=== PATIENT | female | born 1985 | race Caucasian/White ===

== ENCOUNTER 2024-01-03 12:39 | Inpatient (IN) ==
[2024-01-03] MEDS ORDERED: Lidocaine 1% VIAL 10 MG/ML 30 ML VIAL INJ PRN (12:58)
[2024-01-03] MEDS: Lactated Ringers 1000 ml BAG 1,000 ML IV ONE ×2 (13:00→21:19)
[2024-01-03] MEDS: Lactated Ringers 1000 ml BAG 1,000 ML IV SCH ×2 (13:23→21:19)
[2024-01-03 13:33] LABS: ABS Basophils 0.1 10^3/uL (0.0-0.1); ABS Lymphocytes 1.3 10^3/uL (1.0-4.8); ABS Monocytes 0.7 10^3/uL (0.0-0.9); ABS Neutrophils 9.5 10^3/uL (1.5-7.6); ABS Nucleated RBC 0.01 10^3/ul; Eosinophil % 0.3 %; Hematocrit 35.1 % (35-45); Hemoglobin 11.5 g/dL (11.5-14.3); Mean Corpuscular Hgb Conc 32.8 g/dL (31-36); Mean Corpuscular Volume 82.3 fL (80-97); Mean Platelet Volume 10.5 fL (7.5-11.2); Nucleated Red Blood Cells % 0.1 %/100WBC (0.0-0.8); Platelet Count 196 10^3/uL (150-450); Red Blood Count 4.26 10^6/uL (3.63-4.92); Red Cell Distribution Width 13.3 % (12-17); White Blood Count 11.6 10^3/uL (3.8-11.8)
[2024-01-03 13:48] LABS: Urine Appearance Extra Turbid; Urine Bacteria 1+ /HPF (Absent); Urine Bilirubin Negative (Negative); Urine Blood 3+ (Negative); Urine Color Yellow; Urine Glucose Negative (Negative); Urine Ketones Negative (Negative); Urine Nitrite Negative (Negative); Urine Protein 1+ (>=30 mg/dL) (Negative); Urine Red Blood Cell 2+(6-10/hpf) /HPF (0-Trace); Urine Specific Gravity 1.025 (1.002-1.030); Urine Squamous Epithelial Cell Present /HPF (Absent); Urine Urobilinogen Negative (Negative); Urine White Blood Cell 3+(>20/hpf) /HPF (0-Trace); Urine pH 6.5 (5.0-8.0)
[2024-01-03 13:56] LABS: Urine Benzodiazepine Screen None Detected (None Detect); Urine Cannabinoids Screen None Detected (None Detect); Urine Opiates Screen None Detected (None Detect)
[2024-01-03] MEDS: OBEPIDURAL (200 ML) 200 ML EPIDURAL ONE (14:05)
[2024-01-03] MEDS ORDERED: Phenylephrine 40 mcg/mL 10mL (400mcg) SYRINGE IV PUSH PRN ×2 (14:11)
[2024-01-03] MEDS ORDERED: Sodium Citrate/Citric Acid LIQ 15 ML UDC PO PRN (14:11)
[2024-01-03] MEDS ORDERED: Glycerin ADULT 2.4 gm SUPP PR PRN (17:01)
[2024-01-03] MEDS: Witch Hazel PAD JAR TOPICAL PRN (17:27)
[2024-01-03] MEDS: Dibucaine 1% OINT 28.35 GM TUBE PR PRN (17:27)
[2024-01-03] MEDS: Buffered Lidocaine 1% SYRIN 1 ml INTRADERM ONE (21:15)
[2024-01-03] MEDS: Oxytocin in LR 20,000 MILLI.UNIT/1,000 ML BAG IV SCH (21:17)
[2024-01-03] MEDS: Oxytocin in LR 20,000 MILLI.UNIT/1,000 ML BAG IV ONE (21:18)
[2024-01-03] MEDS: Lidocaine 1.5% EPI 1:200,000 30 ML SDV ONE (21:19)
[2024-01-03] MEDS: OBEPIDURAL (200 ML) 200 ML EPIDURAL SCH (21:19)
[2024-01-03] MEDS: Lidocaine/Epinephrin 1.5%/200 5 ML AMP INJ ONE (21:20)
[2024-01-03] MEDS: Phenylephrine 40 mcg/mL 10mL (400mcg) SYRINGE ONE (21:20)
[2024-01-04 07:27] LABS: ABS Lymphocytes 1.5 10^3/uL (1.0-4.8); ABS Monocytes 0.7 10^3/uL (0.0-0.9); Eosinophil % 0.5 %; Hematocrit 28.1 % (35-45); Hemoglobin 9.7 g/dL (11.5-14.3); Lymphocyte % 14.5 %; Mean Corpuscular Hemoglobin 28.7 pg (27-33); Mean Corpuscular Hgb Conc 34.5 g/dL (31-36); Mean Corpuscular Volume 83.3 fL (80-97); Mean Platelet Volume 10.6 fL (7.5-11.2); Platelet Count 151 10^3/uL (150-450); Red Blood Count 3.37 10^6/uL (3.63-4.92); Red Cell Distribution Width 13.4 % (12-17); White Blood Count 10.2 10^3/uL (3.8-11.8)
[2024-01-04 12:09] VITALS: BP 113/60
== END 2024-01-04 18:48 | disposition home or self-care (01) | DRG 560 ==
LOC: MCHOBOUT 12:39 → MCHOB 13:36
PROVIDERS: ADMIT Obstetrics & Gynecology; ATTEND Midwife